=== PATIENT | male | born 1950 | race Caucasian/White ===

== ENCOUNTER 2021-03-11 15:20 | Emergency (ER) | payer OTHER, BC ==
[2021-03-11 15:49] VITALS: BP 131/73; PULSE 60; TEMP 59; BMI 22.6
[2021-03-11] MEDS ORDERED: ACETAMINOPHEN 500 MG TABLET (FP) PO ONE (15:57)
[2021-03-11] MEDS ORDERED: ACETAMINOPHEN 500 MG TABLET (FP) ONE (16:02)
== END 2021-03-11 17:20 | disposition home or self-care (01) ==
LOC: FER 15:20
DX: S62.606A Fracture of unspecified phalanx of right little finger, initial encounter for closed fracture (principal)
CPT/HCPCS: 73130-TC-RT-FY; 73140-TC-RT-FY; 99284-25